=== PATIENT | female | born 1990 | race Caucasian/White ===

== ENCOUNTER 2020-07-26 11:47 | Emergency (ER) | payer BC, OTHER ==
[~2020-07-26 11:47] MED LIST: COLACE 100MG C100 MG PO; IRON325 M1 PO; PRENATAL TABLE1 EAC1 PO
[2020-07-26 13:37] LABS: RED BLOOD COUNT 3.36 M/UL (4.00-5.10); WHITE BLOOD COUNT 10.8 K/UL (4.5-11.0)
[2020-07-26 14:10] LABS: BUN/CREATININE RATIO 17 (0-10)
== END 2020-07-26 15:40 | disposition home or self-care (01) ==
LOC: ER1 11:47
PROVIDERS: Physician Assistant Medical
DX: O99.891 Other specified diseases and conditions complicating pregnancy (principal); M79.661 Pain in right lower leg; R22.41 Localized swelling, mass and lump, right lower limb; Z88.8 Allergy status to other drugs, medicaments and biological substances; Z3A.28 28 weeks gestation of pregnancy
CPT/HCPCS: 80053; 85025; 85610; 85730; 93971; 99285

== ENCOUNTER → 2020-11-12 | Outpatient (CLI) | payer BC, OTHER | LOC: HEART 5 14:00 | DX: I49.9 Cardiac arrhythmia, unspecified (principal) ==